=== PATIENT | female | born 1960 | race Caucasian/White ===

== ENCOUNTER 2017-03-01 13:05 | Outpatient (CLI) | payer BC ==
[2017-03-01 13:00] VITALS: BP 117/72
--- NOTE | 2017-03-01 13:51 | GI Initial Consult Note ---
History of Present Illness General Date patient seen: Mar 01, 2017 Time patient seen: 13:50 Referring physician: MILAGROS VILLEGAS Reason for Consultation: COLONOSCOPY SCREENING Present Illness HPI 57 year old female patient referred by Dr. Villegas for routine colonoscopy screening. Patient has history of colonoscopy x 8 years ago with 3 colonic polyps found. She presents today with no GI complaints. Denies any weight loss or changes in dietary habits. Patient has a history of HTN, but refuses to take any medication and believes in a homeopathic approach. Med list reviewed/reconciled: Yes Allergies: Coded Allergies: No Known Allergies (Unverified , 03/01/17) Patient History History Provided By: Patient, Medical Record Past Medical History: HTN Past Surgical History: other - ovarian cyst removal 10+ years Pertinent Family History: other - sister - Breast CA Social History Narrative social ETOH social tobacco use daily coffee use Review of Systems All Other Systems: limited Physical Exam T 98.1 BP 117/72 P 70 wt 154.2 lbs stated weight gain Sp02 EP Interpretation: reviewed, normal General Appearance: well appearing, no apparent distress, alert Head: normocephalic EENT: PERRL/EOMI, normal ENT inspection Neck: supple Respiratory: normal breath sounds, no respiratory distress Cardiovascular: normal rate Gastrointestinal: normal inspection, non tender, soft, normal bowel sounds, non -distended Rectal: deferred Genitourinary: no CVA tenderness Musculoskeletal: normal inspection, back normal Neurologic: normal inspection, alert, oriented x3, responsive Psychiatric: normal inspection, judgement/insight normal, memory normal Skin: normal inspection, normal color, no rash, warm/dry, palpation normal, well hydrated Lymphatic: normal inspection, no adenopathy GI: Plan Problems: (1) Colonoscopy planned (2) HTN (hypertension) Plan patient requires prior authorization for colonoscopy, will contact patient to schedule. - CLD and prep instructions given and acknowledged. Seen with Dr. Nagy. Thank you for referring this patient. Zina Conti N.P. Mar 01, 2017 13:51
[2017-03-01] MEDS ORDERED: No medication (16:34)
[2017-03-17] MEDS ORDERED: NKM (15:00)
== END 2017-03-01 13:45 | disposition home or self-care (01) ==
LOC: PAN 13:05
DX: I10 Essential (primary) hypertension (principal); Z86.010 Personal history of colon polyps; Z80.3 Family history of malignant neoplasm of breast
CPT/HCPCS: 99201

== ENCOUNTER 2017-03-20 07:10 | Day surgery (SDC) | payer BC ==
[2017-03-20] VITALS (9 sets, daily range): BP systolic 143–160; BP diastolic 79–92
[~2017-03-20] VITALS: Ht 167.6 cm; Wt 68.0 kg
[~2017-03-20 07:10] MED LIST: NKM; No medication
--- NOTE | 2017-03-20 09:13 | Pre-Procedure Note/Attestation ---
Pre-Procedure Note/Attestation Complete Prior to Procedure Planned Procedure: not applicable Procedure Narrative: colonoscopy Indications for Procedure Pre-Operative Diagnosis: screening Attestation I attest that I discussed the nature of the procedure; its benefits; risks and complications; and alternatives (and the risks and benefits of such alternatives ), prior to the procedure, with the patient (or the patient's legal business services sales representative). I attest that, if there was a reasonable possibility of needing a blood transfusion, the patient (or the patient's legal business services sales representative) was given the [facility] standardized written summary, pursuant to the [place] Blood Safety Act ([place] Health and Safety Code # 1645, as amended). I attest that I re-evaluated the patient just prior to the surgery and that there has been no change in the patient's H&P, except as documented below: RIVERA CHEW Mar 20, 2017 09:13
--- NOTE | 2017-03-20 09:14 | Short Stay Surgery H&P ---
History of Present Illness History of Present Illness Chief Complaint see office consult note HPI Yvette Ryan is a 57 year old female who was admitted on for Colon Screening Patient History Allergies: Coded Allergies: No Known Allergies (Unverified , 03/20/17) PAST MEDICAL HISTORY: Past Surgeries: Social History: Medication History Scheduled No Known Medications* (NKM - No Known Medications*), 0 ., (Reported) Physical Exam Vital Signs Last Vital Signs Date Time Temp Pulse Resp B/P (MAP) Pulse Ox O2 Delivery O2 Flow Rate FiO2 03/20/17 07:33 97.9 57 19 145/80 99 Room Air Plan Attestation Are the patient's medical conditions optimized for surgery? RIVERA CHEW Mar 20, 2017 09:14
[2017-03-20] MEDS ORDERED: Alfentanil 2ml Inj ONE (09:30)
[2017-03-20] MEDS ORDERED: Propofol 200mg/20ml IV ONE (09:30)
[2017-03-20] MEDS ORDERED: Midazolam 2mg/2ml Inj ONE (09:30)
[2017-03-20] MEDS ORDERED: LR 1000ml ONE (09:30)
[2017-03-20] MEDS ORDERED: Lidocaine 1% MPF 10mg/ml 5ml ONE (09:30)
[2017-03-20] MEDS ORDERED: LR 1000ml 1,000 ML IVLG SCH (09:32)
--- NOTE | 2017-03-20 09:35 | Immediate Post-Op Evaluation ---
Immediate Post-Op Evalulation Immediate Post-Op Evalulation Procedure: Colonoscopy Date of Evaluation: Mar 20, 2017 Time of Evaluation: 10:07 IV Fluids: 300 LR Blood Products: 0 Estimated Blood Loss: 1 Urinary Output: 0 Blood Pressure Systolic: 146 Blood Pressure Diastolic: 97 Pulse Rate: 58 Respiratory Rate: 16 O2 Sat by Pulse Oximetry: 100 Temperature (Fahrenheit): 97.2 Pain Score (1-10): 1 Nausea: No Vomiting: No Complications 0 Patient Status: awake, reacts, patent, none Hydration Status: adequate Ralph Veras MD Mar 20, 2017 09:35
--- NOTE | 2017-03-20 09:37 | Anethesia Preoperative Eval ---
Anesthesia Pre-op PMH/ROS General Date of Evaluation: Mar 20, 2017 Time of Evaluation: 09:22 Anesthesiologist: Rito ASA Score: ASA 3 Mallampati Score Class I : Soft palate, uvula, fauces, pillars visible Class II: Soft palate, uvula, fauces visible Class III: Soft palate, base of uvula visible Class IV: Only hard plate visible Mallampati Classification: Class II Surgeon: Yakov Diagnosis: Abd Pain Surgical Procedure: Colonoscopy Anesthesia History: none Social History: current smoker Family History: no anesthesia problems Allergies: Coded Allergies: No Known Allergies (Unverified , 03/20/17) Medications: see eMAR Past Medical History Cardiovascular: Reports: HTN, other - HL PSxH Narrative: Ovarian Cyst Anesthesia Pre-op Phys. Exam Physician Exam Last Vital Signs Date Time Temp Pulse Resp B/P (MAP) Pulse Ox O2 Delivery O2 Flow Rate FiO2 03/20/17 07:33 97.9 57 19 145/80 99 Room Air Constitutional: NAD Neurologic: CN 2-12 intact Cardiovascular: RRR Respiratory: CTA Gastrointestinal: S/NT/ND Airway Exam Mallampati Score: Class II MO: full ROM: limited Teeth: intact Anesthesia Pre-op A/P Risk Assessment & Plan Assessment: ASA 3 Plan: GA Status Change Before Surgery: Ralph Hlom MD Mar 20, 2017 09:37
--- NOTE | 2017-03-20 09:38 | 48 Hour Post Anesthesia Eval ---
Post Anesthesia Evaluation Procedure: Colonoscopy Date of Evaluation: Mar 20, 2017 Time of Evaluation: 12:12 Blood Pressure Systolic: 148 0: 92 Pulse Rate: 58 Respiratory Rate: 16 Temperature (Fahrenheit): 97.2 O2 Sat by Pulse Oximetry: 98 Airway: patent Nausea: No Vomiting: No Pain Intensity: 1 Hydration Status: adequate Cardiopulmonary Status: Stable Mental Status/LOC: patient returned to baseline Follow-up Care/Observations: 0 Post-Anesthesia Complications: 0 Follow-up care needed: ready to discharge Ralph Veras MD Mar 20, 2017 09:38
--- NOTE | 2017-03-20 09:43 | Endoscopy Procedure Note ---
Endoscopy Procedure Note Indication for Procedure: screening Procedures Performed: colonoscopy Operative Findings/Diagnosis: 2 polyps Specimen: yes Pt Tolerated Procedure Well: Yes Estimated Blood Loss: none Anesthesiologist: tl Anesthesia: MAC Implant(s) used?: No 50 yrs or older w/o bx or poly: No 10yrs. F/U not recommended: Yes If not recommended, why?: Above average risk 10 yrs. F/U needed: Yes 18 years or older w/prev. colo: Yes <3yrs. since last colonoscopy: No RIVERA CHEW Mar 20, 2017 09:43
[2017-03-20] MEDS ORDERED: fentaNYL 100 mcg/2 mL IV PRN (09:45)
[2017-03-20] MEDS ORDERED: DiphenhydrAMINE 50mg/ml Inj IVP PRN (09:45)
[2017-03-20] MEDS ORDERED: Metoclopramide 10mg/2ml Inj IVP PRN (09:45)
[2017-03-20] MEDS ORDERED: Norco 7.5mg/325mg tab ORAL PRN (09:45)
[2017-03-20] MEDS ORDERED: Norco 5mg/325mg tab ORAL PRN (09:45)
[2017-03-20] MEDS ORDERED: Hydromorphone 0.5mg/0.5ml inj IVP PRN (09:45)
[2017-03-20] MEDS ORDERED: LORazepam Inj 2mg/ml 1ml IV PRN (09:45)
[2017-03-20] MEDS ORDERED: Ketorolac 60mg Inj IV PRN (09:45)
[2017-03-20] MEDS ORDERED: Ketorolac 30mg Inj IV PRN (09:45)
[2017-03-20] MEDS ORDERED: Atropine Inj 1mg/10ml Syr IV PRN (09:45)
[2017-03-20] MEDS ORDERED: oxyCODONE HCL/Acetaminophen 5/325mg ORAL PRN (09:45)
[2017-03-20] MEDS ORDERED: Midazolam 2mg/2ml Inj IVP PRN (09:45)
--- NOTE | 2017-03-20 16:00 | Procedure Note ---
DATE OF PROCEDURE: 03/20/2017 SURGEON: Woodrow Nagy M.D. PROCEDURE: Colonoscopy with biopsy. ANESTHESIOLOGIST: Per Dr. Moyer. INSTRUMENT: Olympus adult flexible colonoscope. INDICATION: Screening colonoscopy. REASON FOR PROCEDURE: The procedure, risks, benefits, and possible consequences, including hemorrhage, aspiration, perforation and infection, and alternative treatments, were explained to the patient/legal guardian by Dr. Woodrow Nagy and the patient/legal guardian understood and accepted these risks. PROCEDURE IN DETAIL: After informed consent was obtained and the patient was adequately sedated, first rectal exam was performed which was positive for external and internal hemorrhoids. Then, the scope was advanced from the rectum into the cecum and then subsequently into the terminal ileum. Quality of prep was very good. The patient had normal terminal ileum mucosa. There were two diminutive polyps in the rectosigmoid area, most probably hypoplastic polyp which were removed with the cold biopsy forceps technique. The rest of the colonic examination grossly within normal limit. Retroflexion of rectum showed evidence of internal hemorrhoids. FINDINGS: 1. Two diminutive polyp, most probably hypoplastic, which were removed. 2. Internal and external hemorrhoids. RECOMMENDATIONS: Repeat colonoscopy in 10 years. I want to thank Dr. Preston Villegas for this kind referral. Woodrow Nagy M.D. DR: Anamaria JOB#: [id number] CC: Preston Villegas M.D.; Fax#: [phone]
--- NOTE | 2017-03-20 20:15 | Cardiology Report ---
APPROVED REPORT EKG Measurement Heart [id number] Normal sinus rhythm Left axis deviation Septal infarct, age undetermined Abnormal ECG
== END 2017-03-20 11:30 | disposition home or self-care (01) ==
LOC: GAS 07:10
DX: Z12.11 Encounter for screening for malignant neoplasm of colon (principal); K63.5 Polyp of colon; K64.4 Residual hemorrhoidal skin tags; K64.8 Other hemorrhoids; I10 Essential (primary) hypertension; E78.5 Hyperlipidemia, unspecified; F17.200 Nicotine dependence, unspecified, uncomplicated
CPT/HCPCS: 45380; 93005; J2250; J2704; J3490; J7120; 94003; 94150

== ENCOUNTER 2017-04-18 09:28 | Outpatient (CLI) | payer BC ==
--- NOTE | 2017-04-18 09:52 | GI Progress Note ---
Assessment/Plan Problems: (1) Colon polyps ICD Codes: K63.5 - Polyp of colon SNOMED: 78825815 (2) Hemorrhoids ICD Codes: K64.9 - Unspecified hemorrhoids SNOMED: 97576235 Status: stable Status Narrative Seen with Dr. Nagy. Assessment/Plan s/p colonoscopy FINDINGS reviewed with patient: 1. Two diminutive polyp, most probably hypoplastic, which were removed. 2. Internal and external hemorrhoids. Bx unremarkable RECOMMENDATIONS: repeat colonoscopy x 5 years Subjective Subjective no GI symptoms has been taking herbal medicine to control her BP Objective T 97.9 BP 124/83 65 HR 99 RA Denies any unintentional weight loss or changes in dietary habits. General Appearance: WD/WN, no apparent distress, alert Cardiovascular: normal rate Respiratory/Chest: normal breath sounds, no respiratory distress Abdominal Exam: normal bowel sounds, non tender, soft Extremities: normal range of motion, non-tender Zina Conti N.P. Apr 18, 2017 09:52
[2017-04-18 09:55] VITALS: BP 124/83
== END 2017-04-18 11:00 | disposition home or self-care (01) ==
LOC: PAN 09:28
DX: K63.5 Polyp of colon (principal); K64.9 Unspecified hemorrhoids
CPT/HCPCS: 99211